=== PATIENT | male | born 1960 | race Caucasian/White ===

== ENCOUNTER 2022-07-19 11:57 | Emergency (ER) | payer MEDICARE, OTHER ==
[2022-07-19 13:45] LABS: HEMOGLOBIN 14.2 gm/dl (14.0-17.5); RED BLOOD COUNT 4.26 M/UL (4.20-5.50); WHITE BLOOD COUNT 8.4 K/UL (4.5-11.0)
[2022-07-19 14:09] LABS: BUN/CREATININE RATIO 16 (0-10)
[2022-07-19] MEDS ORDERED: OMNICEF 300 MG300 MG PO (16:08)
[2022-07-19] MEDS ORDERED: PROVENTIL HFA6.7 GM INH (16:08)
[2022-07-19] MEDS ORDERED: MECLIZINE HCL25 MG PO (16:08)
[2022-07-19] MEDS ORDERED: AZITHROMYCIN500 MG PO (16:08)
== END 2022-07-19 18:19 | disposition home or self-care (01) ==
LOC: ER1 11:57
PROVIDERS: Physician Assistant
DX: J44.0 Chronic obstructive pulmonary disease with (acute) lower respiratory infection (principal); J18.9 Pneumonia, unspecified organism; R73.9 Hyperglycemia, unspecified; J32.9 Chronic sinusitis, unspecified; S01.111D Laceration without foreign body of right eyelid and periocular area, subsequent encounter; K21.9 Gastro-esophageal reflux disease without esophagitis; F17.200 Nicotine dependence, unspecified, uncomplicated; Z20.822 Contact with and (suspected) exposure to COVID-19; W22.8XXD Striking against or struck by other objects, subsequent encounter
CPT/HCPCS: 70450; 71045; 80053; 82550; 82553; 83690; 84484; 85025; 93005; 96374; 99284; J2405; U0002